=== PATIENT | male | born 1995 | race Caucasian/White ===

== ENCOUNTER 2023-05-19 19:42 | Emergency (ER) | payer SELFPAY ==
[2023-05-19 20:20] LABS: Specific Gravity 1.024 (1.005-1.030); Urine Bacteria None Seen /HPF (<20); Urine Bilirubin NEGATIVE (Negative); Urine Blood Negative (Negative); Urine Clarity Clear (Clear); Urine Color Yellow (Yellow); Urine Glucose NEGATIVE (Negative); Urine Mucus Slight /HPF (None Seen); Urine Protein TRACE (Negative); Urine RBC <5 /HPF (None Seen); Urine Urobilinogen Normal (Normal); Urine pH 5.5 (5.0-7.0)
--- NOTE | 2023-05-19 20:52 | RAD REPORT ---
EXAM DESCRIPTION: US - Scrotum Testicles - 05/19/2023 8:27 pm CLINICAL HISTORY: PAIN COMPARISON: No comparisons FINDINGS: The right testicle 4.9 x 3.0 x 1.8 cm. No intratesticular masses or evidence of testicular torsion. The left testicle 4.5 x 3.1 x 1.9 cm. No intratesticular masses or evidence of testicular torsion. Both epididymides are normal in size and appearance. No pathologic fluid collections. IMPRESSION: Unremarkable study.
--- NOTE | 2023-05-19 20:59 | ER ---
Nurse's Notes [facility] Name: Vince Workman Age: 28 yrs Sex: Male : 1995 Arrival Date: 05/19/2023 Time: 19:42 Bed 19 [facility] MD: Diagnosis: Left testicular pain Presentation: 05/19 19:50 Chief complaint: Patient states: left testicle pain and swelling X3 days and worsening. lg3 Coronavirus screen: Client denies travel out of the [place] in the last 14 days. At this time, the client does not indicate any symptoms associated with coronavirus-19. Ebola Screen: No symptoms or risks identified at this time. Initial Sepsis Screen: Does the patient meet any 2 criteria? No. Patient's initial sepsis screen is negative. Does the patient have a suspected source of infection? No. Patient's initial sepsis screen is negative. Risk Assessment: Do you want to hurt yourself or someone else? Patient reports no desire to harm self or others. Onset of symptoms was May 17, 2023. 19:50 Method Of Arrival: Ambulatory lg3 19:50 Acuity: ALBERTO 3 lg3 Triage Assessment: 19:52 General: Appears in no apparent distress. uncomfortable, Behavior is calm, cooperative. lg3 Pain: Complains of pain in left testicle. EENT: No deficits noted. No signs and/or symptoms were reported regarding the EENT system. Neuro: No deficits noted. Roberts Agitation-Sedation Scale (RASS): 0 - Alert and Calm Level of Consciousness is awake, alert, obeys commands, Oriented to person, place, time, situation. Cardiovascular: No deficits noted. Denies chest pain, shortness of breath, Capillary refill < 3 seconds Clubbing of nail beds is absent JVD is absent Patient's skin is warm and dry. Respiratory: No deficits noted. Airway is patent Respiratory effort is even, unlabored, Respiratory pattern is regular, symmetrical. GI: No deficits noted. Abdomen is round non-distended. : No deficits noted. No signs and/or symptoms were reported regarding the genitourinary system. Denies burning with urination, inability to void. Derm: No deficits noted. No signs and/or symptoms reported regarding the dermatologic system. Skin is intact, is healthy with good turgor, Skin is dry, Skin is normal, Skin temperature is warm. Musculoskeletal: No deficits noted. No signs and/or symptoms reported regarding the musculoskeletal system. Circulation, motion, and sensation intact. Range of motion: intact in all extremities. Historical: - Allergies: 19:52 No Known Allergies; lg3 - Home Meds: 19:52 None [Active]; lg3 - PMHx: 19:52 None; lg3 - PSHx: 19:52 None; lg3 - Immunization history:: Adult Immunizations up to date, Client reports receiving the 2nd dose of the Covid vaccine, Flu vaccine is not up to date. - Social history:: Smoking status: Patient denies any tobacco usage or history of. Patient uses alcohol, weekly. Screenin:25 [facility] ED Fall Risk Assessment (Adult) History of falling in the last 3 months, kd3 including since admission No falls in past 3 months (0 pts) Confusion or Disorientation No (0 pts) Intoxicated or Sedated No (0 pts) Impaired Gait No (0 pts) Mobility Assist Device Used No (0 pt) Altered Elimination No (0 pt) Score/Fall Risk Level 0 - 2 = Low Risk Maintained a safe environment. Abuse screen: Denies threats or abuse. Denies injuries from another. Nutritional screening: No deficits noted. Tuberculosis screening: No symptoms or risk factors identified. Assessment: 20:24 General: Appears in no apparent distress. Behavior is calm, cooperative. Pain: 3 Complains of pain in left testicle and groin. Neuro: Level of Consciousness is awake, alert, obeys commands, Oriented to person, place, time, situation. Cardiovascular: Patient's skin is warm and dry. Respiratory: Airway is patent Trachea midline Respiratory effort is even, unlabored, Respiratory pattern is regular, symmetrical. GI: Abdomen is non-distended. Vital Signs: 19:50 BP 125 / 77; Pulse 73; Resp 16 S; Temp 98(O); Pulse Ox 98% on R/A; Weight 74.84 kg (R); lg3 Height 5 ft. 11 in. (R); Pain 4/10; 21:07 BP 118 / 71; Pulse 84; Resp 19; Pulse Ox 99% on R/A; kd3 19:50 Body Mass Index 23.01 (74.84 kg, 180.34 cm) 3 19:50 Pain Scale: Adult lg3 ED Course: 19:45 Patient arrived in ED. jj6 19:46 [facility]C [facility] kb 19:46 Nitin Alvarez DO is Attending Physician. kb 19:51 Triage completed. lg3 19:52 Arm band placed on right wrist. lg3 19:55 Keyanna Fernandez, RN is Primary Nurse. kd3 20:18 Urinalysis w/ reflexes Sent. kd3 20:25 Provided Education on: . kd3 20:25 Patient has correct armband on for positive identification. kd3 20:29 US Scrotum Testicles In Process Unspecified. EDMS 21:06 No provider procedures requiring assistance completed. Patient did not have IV access kd3 during this emergency room visit. Administered Medications: 21:06 Drug: HYDROcodone-acetaminophen PO 5 mg-325 mg 1 tabs PO once Route: PO; kd3 21:07 Follow up: Response: No adverse reaction kd3 Medication: 20:25 VIS not applicable for this client. kd3 Outcome: 20:58 Discharge ordered by . kb 21:06 Discharged to home ambulatory, kd3 21:06 Condition: stable 21:06 Discharge instructions given to patient, family, Instructed on discharge instructions, follow up and referral plans. Demonstrated understanding of instructions, follow-up care, 21:07 Patient left the ED. kd3 Signatures: Dispatcher [employer] [facility] Meryl Nix FNP-C DINING ROOM HOST/HOSTESS-Jill Polk RN RN lg3 Lian Echevarria [email or web address] Keyanna Fernandez, RN RN kd3
--- NOTE | 2023-05-19 20:59 | EDPHYS ---
Physician Documentation [facility] Name: Vince Workman Age: 28 yrs Sex: Male : 1995 Arrival Date: 05/19/2023 Time: 19:42 Bed 19 Private MD: ED Physician Nitin Alvarez HPI: 05/19 21:05 This 28 yrs old Male presents to ER via Ambulatory with complaints of Testicular Pain, kb Testicular Swelling. 21:05 The patient presents with scrotal pain, of the left side, without swelling, without kb erythema. Onset: The symptoms/episode began/occurred 3 day(s) ago. Modifying factors: The symptoms are alleviated by nothing, the symptoms are aggravated by nothing. Associated signs and symptoms: The patient has no apparent associated signs or symptoms. Severity of symptoms: At their worst the symptoms were mild, moderate, in the emergency department the symptoms are unchanged. The patient has not experienced similar symptoms in the past. The patient has not recently seen a physician. Historical: - Allergies: 19:52 No Known Allergies; lg3 - Home Meds: 19:52 None [Active]; lg3 - PMHx: 19:52 None; lg3 - PSHx: 19:52 None; lg3 - Immunization history:: Adult Immunizations up to date, Client reports receiving the 2nd dose of the Covid vaccine, Flu vaccine is not up to date. - Social history:: Smoking status: Patient denies any tobacco usage or history of. Patient uses alcohol, weekly. ROS: 21:03 Constitutional: Negative for fever, chills, and weight loss, kb 21:03 : Positive for testicular pain of the left testicle, 21:03 All other systems are negative, Exam: 21:03 Constitutional: This is a well developed, well nourished patient who is awake, alert, kb and in no acute distress. Head/Face: Normocephalic, atraumatic. ENT: Moist Mucous membranes Cardiovascular: Regular rate Respiratory: Respirations even and unlabored. No increased work of breathing. Talking in full sentences Abdomen/GI: Soft, non-tender. No distention Male : Normal genitalia with no discharge or lesions. Skin: Warm, dry with normal turgor. Normal color. MS/ Extremity: Pulses equal, no cyanosis. Neurovascular intact. Full, normal range of motion. Neuro: Awake and alert, GCS 15, oriented to person, place, time, and situation. Moves all extremities. Normal gait. Vital Signs: 19:50 BP 125 / 77; Pulse 73; Resp 16 S; Temp 98(O); Pulse Ox 98% on R/A; Weight 74.84 kg (R); lg3 Height 5 ft. 11 in. (R); Pain 4/10; 21:07 BP 118 / 71; Pulse 84; Resp 19; Pulse Ox 99% on R/A; kd3 19:50 Body Mass Index 23.01 (74.84 kg, 180.34 cm) lg3 19:50 Pain Scale: Adult lg3 MDM: 19:46 Patient medically screened. kb 21:04 Differential diagnosis: urethritis, testicular torsion, epididymitis. Data reviewed: kb vital signs, nurses notes. I considered the following discharge prescriptions or medication management in the emergency department I discussed and recommended Over The Counter medications, Antibiotics: At this time antibiotics are not recommended. Counseling: I had a detailed discussion with the patient and/or guardian regarding the historical points, exam findings, and any diagnostic results supporting the discharge/admit diagnosis, lab results, radiology results, the need for outpatient follow up, a urologist, to return to the emergency department if symptoms worsen or persist or if there are any questions or concerns that arise at home. 05/19 19:55 Order name: Urinalysis w/ reflexes; Complete Time: 20:25 kb 05/19 19:55 Order name: US Scrotum Testicles; Complete Time: 20:53 kb Administered Medications: 21:06 Drug: HYDROcodone-acetaminophen PO 5 mg-325 mg 1 tabs PO once Route: PO; kd3 21:07 Follow up: Response: No adverse reaction kd3 Disposition: 21:12 I was immediately available on-site in the Emergency Department for consultation in the nm3 care of the patient. Disposition Summary: 05/19/23 20:58 Discharge Ordered Notes: Location: Home Condition: Stable kb Diagnosis - Left testicular pain kb Followup: kb - With: Emergency Department - When: As needed - Reason: Worsening of condition Followup: kb - With: Private Physician - When: 2 - 3 days - Reason: Recheck today's complaints, Continuance of care, Re-evaluation by your physician Discharge Instructions: - Discharge Summary Sheet kb - Testicular Self-Exam, [id number] kb Forms: - Medication Reconciliation Form kb - Thank You Letter kb - Antibiotic Education kb - Prescription Opioid Use kb - Patient Portal Instructions kb - Leadership Thank You Letter kb Signatures: Dispatcher [employer] Meryl West, NETWORK SUPPORT ANALYST-C NETWORK SUPPORT ANALYST-Jill Polk, RN RN lg3 Nitin Alvarez DO DO ms3 Keyanna Fernandez RN RN kd3
[2023-05-19] MEDS ORDERED: HYDROCODONE/APAP 5/325 MG TAB ONE (21:11)
[2023-05-19 22:32] VITALS: TEMP 98
[2023-05-19 22:34] VITALS: BP 118/71; O2SAT 99
== END 2023-05-19 21:07 | disposition home or self-care (01) ==
LOC: ER 19:42
DX: N50.812 Left testicular pain (principal)
CPT/HCPCS: 76870; 81001